=== PATIENT | male | born 1950 | race Caucasian/White ===

== ENCOUNTER 2020-03-16 07:49 | Outpatient (CLI) | payer MEDICARE, OTHER, SELFPAY ==
--- NOTE | ~2020-03-16 | NM_ITS ---
EXAMINATION: NM bone scan whole body DATE: 03/16/2020 13:52 INDICATION: Prostate cancer. TECHNIQUE: 23.6 mCi Tc-99m HDP was administered intravenously. Delayed whole-body scintigrams were o btained. COMPARISON: CT abdomen and pelvis 03/16/2020 FINDINGS: There is joint centered increased activity in the shoulders, sternoclavicular joints, knees , and feet, likely osteoarthritis. There is increased activity in lower lumbar spine correlating with degenerative disc disease by CT. IMPRESSION: 1. No evidence of metastatic disease. Reviewed, dictated and finalized at location A. ING MILL SUPERVISOR
--- NOTE | ~2020-03-16 | XR_ITS ---
XR chest 2V 03/16/2020 08:13 Indication: Prostate cancer. Hypertension. Procedure: PA and lateral views of the chest Comparison: No prior studies for comparison. Findings: Heart size normal. No focal air space disease, pulmonary edema, pleural effusion or suspect ed pneumothorax. Impression: 1: No acute cardiopulmonary disease. Reviewed, dictated and finalized at location B. COREMAKER Impression: 1: No acute cardiopulmonary disease.
--- NOTE | ~2020-03-16 | CT_ITS ---
EXAMINATION: CT abdomen pelvis w con EXAM DATE: 03/16/2020 08:24 INDICATION: Prostate cancer. TECHNIQUE: Spiral CT of the abdomen and pelvis was performed following intravenous injection of 100 m L Omnipaque 350. Axial, coronal and sagittal images were reviewed. The dose-length product (DLP) fo r this examination was 1361.33 mGy-cm. The exposure was tailored according to patient size (auto mA exposure control), and iterative reconstruction (ASIR) was used as additional dose reduction techniqu e. Comparison is made to prior examination from 05/24/2014. FINDINGS: The liver, spleen, adrenal glands and pancreas are unremarkable. Gallbladder is unremarkab le. No biliary obstruction. Portal and splenic veins are patent. Kidneys enhance symmetrically. T here is no hydronephrosis. There is a right renal peripelvic cyst measuring 4 cm. The prostate is un remarkable. The bladder is unremarkable. There is no retroperitoneal or pelvic lymphadenopathy. T here is mild scattered arteriosclerotic disease. Small umbilical fat-containing hernia. The appendix is normal. The stomach and small bowel are unremarkable. There is mild sigmoid colonic diverticulosis. There is no adjacent inflammatory change to suggest diverticulitis. There is expect ed amount of colonic stool. No free intraperitoneal gas. The heart is normal in size. There are no pericardial or pleural effusions. The lung bases are unremarkable. There are no osteoblastic or osteolytic lesions identified. IMPRESSION: 1. No evidence of metastatic disease. Reviewed, dictated and finalized at location A. D WINDER
[2020-03-16 08:19] LABS: Estimated Glomerular Filt Rate > 60
== END 2020-03-16 07:50 | disposition home or self-care (01) ==
PROVIDERS: PCP Internal Medicine; Visit Provider Urology
DX: C61 Malignant neoplasm of prostate (principal); N28.1 Cyst of kidney, acquired
CPT/HCPCS: 71046; 74177; 78306; A9561; Q9967

== ENCOUNTER 2020-04-20 09:48 | Outpatient (CLI) | payer MEDICARE, OTHER, SELFPAY ==
--- NOTE | ~2020-04-20 | XR_ITS ---
EXAMINATION: XR chest 2V DATE: 04/20/2020 10:50 INDICATION: Malignant neoplasm of prostate. TECHNIQUE: Frontal and lateral views of the chest were obtained. COMPARISON: Chest 2 views 03/16/2020, CT abdomen and pelvis 03/16/2020 FINDINGS: The chest demonstrates clear lungs without pneumonia, pleural effusion, or pneumothorax. Th e heart size is normal. IMPRESSION: 1. No acute cardiopulmonary disease. Reviewed, dictated and finalized at location A. OGY TEACHER
--- NOTE | 2020-04-20 10:30 | ECG_ITS ---
Measurements Intervals [place] Rate: 67 P: 44 AK: 179 QRS: -21 QRSD: 89 T: 12 QT: 389 QTc: 411 Interpretive Statements SINUS RHYTHM DELAYED PRECORDIAL R/S TRANSITION BORDERLINE T WAVE ABNORMALITY- INFERIOR LEADS BASELINE ARTIFACT- I, II, AVR, AVL BORDERLINE ECG Electronically Signed On 04-20-2020 10:54:15 MEDICAL REVIEW SPECIALIST by Kaleb Hagen D.O.
[2020-04-20 10:58] LABS: Basophils Absolute Auto 0.1 K/mm3 (0.0-0.1); Basophils Percent Auto 0.7 % (0.2-1.2); Eosinophils Absolute Auto 0.3 K/mm3 (0-0.3); Eosinophils Percent Auto 4.7 % (0-4.4); Hematocrit 44.2 % (42.0-52.0); Hemoglobin 14.8 g/dL (14.0-18.0); Immature Granulocyte Absolute 0.02 K/mm3 (0.00-0.031); Immature Granulocyte Percent A 0.3 % (0-0.5); Lymphocytes Absolute Auto 1.81 K/mm3 (0.9-3.2); Lymphocytes Percent Auto 25.9 % (18.3-44.2); Mean Corpuscular HGB Conc 33.5 g/dl (32-36); Mean Corpuscular Hemoglobin 30.3 pg (26-34); Mean Corpuscular Volume 90.6 fl (80-100); Mean Platelet Volume 9.9 fl (7.4-10.4); Monocytes Absolute Auto 0.8 K/mm3 (0.1-0.6); Neutrophils Absolute Auto 3.9 K/mm3 (1.3-6.7); Neutrophils Percent Auto 56.4 % (45.5-73.1); Platelet Count Result 231 k/mm3 (150-375); Red Blood Count 4.88 M/mm3 (4.6-6.20); Red Cell Distribution Width 12.4 % (11.5-14.5)
[2020-04-20 11:00] LABS: Add Urine Microscopic? NO; Appearance Urine Clear (Clear); Bilirubin Urine Negative (Negative); Blood Urine Negative (Negative); Color Urine Yellow (Yellow); Glucose Urine UA Negative (Negative); Ketones Urine Negative (Negative); Leukocyte Esterase Ur Negative LEU/UL (Negative); Nitrate Urine Negative (Negative); Protein Urine Negative (Negative); Specific Grav Ur 1.015 (1.001-1.035); Urobilinogen Urine Negative mg/dL (<2.0)
[2020-04-20 11:10] LABS: Alanine Aminotransferase 31 U/L (4-50); Alkaline Phosphatase 75 U/L (38-126); Anion Gap 6 mmol/L (8-16); Aspartate Amino Transferase 27 U/L (17-59); Bilirubin,Total 0.5 mg/dL (0.2-1.3); Blood Urea Nitrogen 14 mg/dL (9-20); Calcium 9.2 mg/dL (8.4-10.2); Carbon Dioxide 31 mmol/L (22-30); Chloride 101 mmol/L (98-107); Estimated Glomerular Filt Rate > 60; Glucose 109 mg/dL (75-110); Potassium 4.2 mmol/L (3.4-5.0); Sodium 138 mmol/L (137-145)
[2020-04-20 11:13] LABS: INR 0.9; Prothrombin Time 13.1 Seconds (11.1-14.7)
[2020-04-20 11:14] LABS: Partial Thromboplastin Time 26.5 SECONDS (22.3-36.8)
== END 2020-04-20 09:49 | disposition home or self-care (01) ==
LOC: ANHSURGERY 09:51
PROVIDERS: PCP Internal Medicine; Visit Provider Urology
DX: Z01.818 Encounter for other preprocedural examination (principal); C61 Malignant neoplasm of prostate
CPT/HCPCS: 36415; 71046; 80053; 81003; 85025; 85610; 85730; 86850; 86900; 86901; 93005

== ENCOUNTER 2020-04-25 00:26 | Outpatient (CLI) | payer MEDICARE, OTHER, SELFPAY ==
[2020-04-25 19:06] LABS: SARS-CoV-2 RNA PCR Negative
== END 2020-04-25 00:27 | disposition home or self-care (01) ==
LOC: ANHCOVIDDT 00:26
PROVIDERS: PCP Internal Medicine; Visit Provider Urology
DX: Z01.812 Encounter for preprocedural laboratory examination (principal); Z20.822 Contact with and (suspected) exposure to COVID-19
CPT/HCPCS: C9803; U0003

== ENCOUNTER 2020-04-28 00:23 | Day surgery (SDC) | payer MEDICARE, OTHER, SELFPAY ==
[2020-04-20 10:10] VITALS: BP 166/72; PULSE 76; RESP 20; TEMP 37.1; O2SAT 98; BMI 35.5
--- NOTE | 2020-04-25 07:35 | P.HP_ITS ---
H&P: HPI History of Present Illness Date/Time: 04/25/20 07:35 Chief Complaint: Prostate cancer Narrative: Taurus Pelaez is a 70 year old male recently presented with a PSA of 6.6. Prostate ultrasound and biopsy revealed 6 of 12 cores with May [address] scan the abdomen pelvis, bone scan and chest x-ray showed some metastatic disease. Prostate volume by ultrasound was 26.6 grams. After careful discussion of the therapeutic options including radical prostatectomy, pelvic radiation in its various forms, androgen deprivation and active surveillance he has elected for the former. He is aware the risk of this procedure including, but not limited to, adverse cardiopulmonary events, rectal injury, failure to control prostate, cancer urinary incontinence and erectile dysfunction. Review of Systems Cardiovascular: Cardiovascular: Denies chest pain, Denies lightheadedness, Denies palpitations and Denies dyspnea Respiratory: Respiratory: Denies dyspnea Gastrointestinal: Gastrointestinal: Denies diarrhea, Denies nausea and Denies vomiting Genitourinary: Genitourinary: Denies hematuria and Denies dysuria Endocrine: Endocrine: Denies palpitations PMFSH Family History Family History Mother Family history of congestive heart failure, Onset Age: 76 Patient's mother is Family history of malignant neoplasm Sibling Hypertension Patient's sister is in good health Father Hypertension Family history of malignant neoplasm Patient's father is Other Diabetes mellitus Social History Social History Smoking status: Former smoker Tobacco type: cigarettes Second hand tobacco smoke exposure: No Additional smoking assessment comments: STATES 1PK/DAY/30YRS QUIT 1999 Alcohol intake: current Substance use: never Substance use type: does not use Spiritual care concerns: No Meds Home Medications and Allergies Home Medications Medication Instructions Recorded Confirmed Type lisinopril 10 1 tablet PO DAILY #90 tablet 12/09/19 04/20/20 Rx mg-hydrochlorothiazide 12.5 mg tablet atorvastatin 40 mg HS 04/20/20 04/20/20 History kdoznswu-cnn-JO-lycopen-lutein 1 tablet PO DAILY 04/20/20 04/20/20 History [Centrum Silver Men] Allergies Allergy/AdvReac Type Severity Reaction Status Date / Time Bumble Bee Allergy Intermediate SWELLING Uncoded 04/20/20 10:06 Exam Const: General: no acute distress Resp: Effort & Inspection: normal respiratory effort GI: Inspection: non-distended GI Palp: No abdominal tenderness and No Guarding due to palpation present (GI) Auscultation: normal bowel sounds Assessment and Plan Assessment and plan (1) Prostate cancer: Code(s): C61 - Malignant neoplasm of prostate Status: Acute Assessment and Plan: * Clinically localized, high-risk prostate cancer * Robotic-assisted radical prostatectomy with bilateral pelvic lymphadenectomy.
[2020-04-28] VITALS (15 sets, daily range): BP systolic 119–150; BP diastolic 67–95; PULSE 85–113; RESP 14–20; TEMP 36.2–36.9; O2SAT 93–98; BMI 35.4
[2020-04-28] MEDS: LACTATED RINGERS 1,000 ML 30 ML IV CONT ×2 (06:40→10:29)
--- NOTE | 2020-04-28 07:06 | WPDANESEPPF ---
Anes - Initial Pre Proc Eval Procedure: Operation Date: 04/28/20 07:30 Proposed Procedures p Robotic Assisted Laparoscopic Prostatectomy With Pelvic Lymph Node Dissection - Juan J Hernandez MD Date/Time: 04/28/20 07:06 Surgeon: Juan J Hernandez MD Pre Op Diagnosis: prostate ca Patient Data Age: 70 Gender: M Height: 5 ft 9 in Weight: 105.2 kg Last Vital Signs Temp 36.9 C 04/28/20 06:52 Pulse 94 04/28/20 06:52 Resp 16 04/28/20 06:52 BP 136/81 04/28/20 06:52 Pulse Ox 95 04/28/20 06:52 Allergies Allergy/AdvReac Type Severity Reaction Status Date / Time Bumble Bee Allergy Intermediate SWELLING Uncoded 04/28/20 06:08 Home Medications Medication Instructions Recorded Confirmed Type lisinopril 10 1 tablet PO DAILY #90 tablet 12/09/19 04/28/20 Rx mg-hydrochlorothiazide 12.5 mg tablet atorvastatin 40 mg HS 04/20/20 04/28/20 History glnzrtyn-qdq-OC-lycopen-lutein 1 tablet PO DAILY 04/20/20 04/28/20 History [Centrum Silver Men] Patient hx anesthesia problems: none Family hx anesthesia problems: none PMFSH Past Medical History Medical History (Updated 04/28/20 @ 07:06 by Rick Romano MD) HTN (hypertension) Hyperlipidemia Family History Family History Mother Family history of congestive heart failure, Onset Age: 76 Patient's mother is Family history of malignant neoplasm Sibling Hypertension Patient's sister is in good health Father Hypertension Family history of malignant neoplasm Patient's father is Other Diabetes mellitus Social History Social History Smoking status: Former smoker Tobacco type: cigarettes Second hand tobacco smoke exposure: No Additional smoking assessment comments: STATES 1PK/DAY/30YRS QUIT 1999 Alcohol intake: current Alcohol use details: STATES MAY BE COUPLE DRINKS ONCE A YR Substance use: never Substance use type: does not use Living arrangements: with family Spiritual care concerns: No Anes - Eval Final PreProcedure Day of Procedure 04/28/20 07:06 Patient weight: obese Heart: regular rate and rhythm Lungs: clear to auscultation Airway: Mallampati scale class II Neurological: alert and oriented Last oral intake: >/= 8 hours ASA classification: III Emergent: no Anesthetic plan: proceed Anesthesia type and monitoring: general ETT and standard monitoring Informed Consent: The patient's anesthetic plan and its attendant risks and benefits were discussed with the patient/family/POA. Questions were solicited and answers provided to the satisfaction of the patient/family/POA.
--- NOTE | 2020-04-28 07:10 | WPDHPUPDATE1 ---
History and Physical Update Update Date/Time: 04/28/20 07:10 History and Physical has been reviewed, including an updated exam of the patient. There are NO changes in the patient's condition. Risks, benefits, and alternatives have been discussed and questions answered. Patient agrees to proceed with procedure.
[2020-04-28] MEDS: ceFAZolin 2 GM/D5W 50 ML 2 GM/50 ML BAG IVPB (07:23)
[2020-04-28] MEDS: fentaNYL CITRATE INJ (*CRX) 100 MCG/2 ML VIAL 25 MCG IV PUSH ×4 (10:46→11:15)
--- NOTE | 2020-04-28 10:46 | PM.PROC ---
Procedure Note - Detailed Date of procedure: 04/28/20 Pre-op diagnosis: prostate ca Post-op diagnosis: same Procedure performed: Robotic assisted laparoscopic prostatectomy with bilateral pelvic lymphadenectomy Description of procedure: The patient was brought to the operative suite, where he was prepped and draped in routine sterile fashion while in a dorsal lithotomy, deep Trendelenburg position. A supraumbilical 10 mm trocar was placed after insufflation of the abdomen with a Veress needle. Three robotic ports were then placed under direct vision. Two of these were placed in the right lower quadrant - 10 cm and 20 cm lateral to, and in line with, the umbilicus. A third robotic trocar was placed 10 cm to the left of the umbilicus, and 20 cm to the left of the umbilicus, a 12 mm standard laparoscopic trocar was placed to be used as an bilingual executive assistant port. Lastly, a 5 mm trocar was placed in the left upper quadrant midway between the umbilicus and the left robotic trocar. Attention was then turned to the prostatectomy. I opted for a posterior approach in this patient. An incision was made in the parietal peritoneum along the posterior bladder/posterior prostate about 2 cm above the reflection of the peritoneum over the anterior rectum. The seminal vesicles and vas deferens were immediately identified. Dissection is undertaken in a fashion so as to avoid electrocautery as much as possible, particularly near the tips of the seminal vesicles. Dissection was also carried out in the midline so as to avoid any encounters with the ureters. The vas deferens and the seminal vesicles were dissected in their entirety to the base of the prostate. The plane anterior to Denoviller's fascia, anterior to the rectum and posterior to the prostate was then developed. I then dropped the bladder by incising the anterior parietal peritoneum just lateral to the median umbilical ligaments bilaterally. The bladder was dropped from the anterior abdominal and pelvic wall. The endopelvic fascia was identified and incised bilaterally, allowing for dissection of the posterior-lateral aspect of the prostate. The puboprostatic ligaments were transected near their origin from the posterior pubic ramus. This posterior lateral dissection of the prostate is also undertaken in a fashion so as to avoid electrocautery as much as possible. The dorsal vein of the penis is then secured with an 0 -Vicryl ligature. Attention is then turned to the bladder neck. The anterior bladder neck is incised at the vesico-prostatic junction. The previously placed urethral catheter was drawn through the urethrotomy. A very small bladder neck was maintained throughout the remainder of this dissection. The posterior bladder neck was incised in a fashion so as to avoid any injury to the ureteral orifices. Again, the small aperture of the bladder neck was maintained. The previously dissected vas deferens and the seminal vesicles were brought through the posterior bladder neck incision. The lateral prostatic pedicles were then carefully dissected from the lateral aspect of the prostate bilaterally. The prostatic pedicles were secured with Weck clips and transected. The neurovascular bundles were carefully dissected from the posterior-lateral aspect of the prostate. The dorsal vein of the penis was incised with electrocautery. Using cold scissors, the urethra was incised. After withdrawing the previously placed urethral catheter, the posterior urethra was sharply incised, as was the rectalurethralis muscle. Attention was then turned to a bilateral pelvic lymphadenectomy. The limits of this dissection were similar bilaterally. Specifically, the limits were the bifurcation of the common iliac vein proximally, the inguinal ligament distally, the obturator nerve posteriorly and the anterior aspect to the external iliac vein laterally. This dissection was undertaken with care to avoid any injury to the obturator nerve. The p
[2020-04-28] MEDS: ONDANSETRON INJ 4 MG/2 ML VIAL IV PUSH (11:05)
--- NOTE | 2020-04-28 11:13 | SUR.PHASEI ---
1110 - dr. zarco at bedside
[2020-04-28] MEDS: LACTATED RINGERS 1,000 ML 125 ML IV CONT ×2 (12:30→21:30)
--- NOTE | 2020-04-28 14:43 | PC.NURSE ---
04/28/2020 1208 Pt brought to room, report received from PACU. Pt alert & awake, appropriate, no c/o pain. Oriented to unit, clear liquid diet ordered. Pt instructed on use of phone, call light and how to reach the nurse & tech for any needs.
[2020-04-28] MEDS: ATORVASTATIN 40 MG TABLET BY MOUTH (22:50)
[2020-04-29] VITALS: BP 132/75; PULSE 85; RESP 20; TEMP 36.8; O2SAT 96
[2020-04-29 04:00] VITALS: BP 141/70; PULSE 83; RESP 20; TEMP 37.2; O2SAT 96
[2020-04-29] MEDS: LACTATED RINGERS 1,000 ML 125 ML IV CONT (05:10)
[2020-04-29 05:46] LABS: Hematocrit 38.7 % (42.0-52.0); Hemoglobin 13.1 g/dL (14.0-18.0)
[2020-04-29 05:50] LABS: Anion Gap 5 mmol/L (8-16); Blood Urea Nitrogen 12 mg/dL (9-20); Calcium 8.4 mg/dL (8.4-10.2); Carbon Dioxide 29 mmol/L (22-30); Chloride 100 mmol/L (98-107); Estimated CRCL calculation 86 ml/min; Estimated Glomerular Filt Rate > 60; Glucose 140 mg/dL (75-110); Sodium 134 mmol/L (137-145)
--- NOTE | 2020-04-29 07:17 | WPDUROPN2 ---
Progress Note: A&P Assessment and Plan (1) Prostate cancer: Code(s): C61 - Malignant neoplasm of prostate Status: Acute Assessment and Plan: Doing well POD #1 - tolerating diet and no significant abd/pelvic pain. Ambulate/increase diet this morning. Home this afternoon if continues to do well. Subjective Subjective Date/Time Seen: 04/29/20 07:17 POD #1 RALP - comfortable, tolerating diet Review of Systems Cardiovascular: Cardiovascular: Denies chest pain, Denies lightheadedness, Denies palpitations and Denies dyspnea Respiratory: Respiratory: Denies dyspnea Gastrointestinal: Gastrointestinal: Denies diarrhea, Denies nausea and Denies vomiting Genitourinary: Genitourinary: Denies hematuria and Denies dysuria Endocrine: Endocrine: Denies palpitations Exam Const: General: no acute distress Resp: Effort & Inspection: normal respiratory effort GI: Inspection: non-distended GI Palp: No abdominal tenderness and No Guarding due to palpation present (GI) Auscultation: normal bowel sounds Objective Data Vital Signs Vital Signs: Vital Signs - 24 hr 04/28/20 10:29 04/28/20 10:45 04/28/20 11:00 Temperature 98.0 F Pulse Rate 105 H 85 92 Respiratory Rate 16 18 14 Blood Pressure 149/76 H 150/95 H 130/73 Pulse Oximetry 97 95 96 04/28/20 11:15 04/28/20 11:30 04/28/20 11:45 Temperature Pulse Rate 93 88 86 Respiratory Rate 20 16 18 Blood Pressure 126/83 138/76 126/67 Pulse Oximetry 94 94 94 04/28/20 11:55 04/28/20 11:57 04/28/20 12:12 Temperature 97.4 F L 97.3 F L Pulse Rate 95 107 H 101 H Respiratory Rate 16 19 17 Blood Pressure 119/70 147/77 H 123/69 Pulse Oximetry 94 94 93 04/28/20 12:42 04/28/20 13:42 04/28/20 17:42 Temperature 97.1 F L 97.9 F 98.2 F Pulse Rate 103 H 104 H 100 Respiratory Rate 17 17 19 Blood Pressure 131/76 146/79 H 138/72 Pulse Oximetry 96 94 98 04/28/20 20:00 04/28/20 21:00 04/29/20 00:00 Temperature 97.6 F 98.3 F Pulse Rate 113 H 85 Respiratory Rate 20 20 Blood Pressure 135/85 132/75 Pulse Oximetry 96 96 96 04/29/20 04:00 Temperature 98.9 F Pulse Rate 83 Respiratory Rate 20 Blood Pressure 141/70 H Pulse Oximetry 96 Intake/Output Intake/Output: Intake & Output 04/26/20 04/27/20 04/28/20 04/29/20 23:59 23:59 23:59 23:59 Intake Total 1650 2200 Output Total 610 3700 Balance 1040 -1500 Meds/Results Medications: Active Medications Generic Name Dose Route Start Last Admin Trade Name Freq PRN Reason Stop Dose Admin Atorvastatin Calcium 40 mg 04/28/20 21:00 04/28/20 22:50 Atorvastatin 40 Mg Tablet BY MOUTH 40 mg HS BEBO Administration Fentanyl Citrate 25 mcg 04/28/20 07:00 04/28/20 11:15 Fentanyl Citrate Inj (*Crx) 100 Mcg/2 Ml Vial IV PUSH 25 mcg Q2M PRN Administration Pain Hydrochlorothiazide 12.5 mg 04/29/20 09:00 Hydrochlorothiazide 12.5 Mg Capsule PO 05/29/20 09:01 DAILY BEBO Hyoscyamine 0.125 mg 04/28/20 11:57 Hyoscyamine Sulfate 0.125 Mg Tablet SUBLINGUAL Q4H PRN Bladder Spasm Lactated Ringer's 1,000 mls @ 30 mls/hr 04/27/20 15:40 04/28/20 10:29 Lr - Lactated Ringers Iv IV CONT Infused .Q24H BEBO Infusion Lactated Ringer's 1,000 mls @ 30 mls/hr 04/28/20 07:00 04/28/20 11:56 Lr - Lactated Ringers Iv IV CONT Infused .Q24H BEBO Infusion Lactated Ringer's 1,000 mls @ 125 mls/hr 04/28/20 11:57 04/29/20 05:10 Lr - Lactated Ringers Iv IV CONT 125 mls/hr .Q8H BEBO Administration Levofloxacin 500 mg 04/29/20 09:00 Levofloxacin Tab 500 Mg Tablet PO DAILY BEBO Lisinopril 10 mg 04/29/20 09:00 Lisinopril 10 Mg Tablet PO 05/29/20 09:01 DAILY BEBO Naloxone HCl 0.1 mg 04/28/20 11:57 Naloxone Hcl 0.4 Mg/Ml Vial IV PUSH Q2M PRN Opiate Reversal Ondansetron HCl 4 mg 04/28/20 07:00 04/28/20 11:05 Ondansetron Inj 4 Mg/2 Ml Vial IV PUSH 4 mg ONCE PRN Administration Nausea L
--- NOTE | 2020-04-29 07:45 | WPDANESPN ---
Anes - Prog Note Post-Op Date/Time: 04/29/20 07:45 Cardiovascular status: normal Respiratory status: normal Airway patency: baseline Mental status: baseline Post-Op hydration status: normal Vital Signs: Last Vital Signs Temp 37.2 C 04/29/20 04:00 Pulse 83 04/29/20 04:00 Resp 20 04/29/20 04:00 BP 141/70 H 04/29/20 04:00 Pulse Ox 96 04/29/20 04:00 Pain Score (VAS): 3 I/O: Intake & Output 04/28/20 04/28/20 04/29/20 15:59 23:59 07:59 Intake Total 300 1300 2200 Output Total 60 550 3700 Balance 240 750 -1500 Laboratory Tests 04/29/20 05:14 04/29/20 05:14 04/29/20 04/29/20 05:14 05:14 Hgb 13.1 L Hct 38.7 L Sodium 134 L Potassium 4.0 Chloride 100 Carbon Dioxide 29 Anion Gap 5 L BUN 12 Creatinine 0.80 Estim Creat Clear Calc 86 Estimated GFR > 60 Glucose 140 H Calcium 8.4 Post-procedural complaints: none Patient Feedback: Patient satisfied with anesthetic care.
[2020-04-29 08:43] VITALS: PULSE 100; RESP 18; O2SAT 92
[2020-04-29] MEDS: hydroCHLOROthiazide 12.5 MG CAPSULE PO (08:43)
[2020-04-29] MEDS: lisinopriL 10 MG TABLET PO (08:43)
[2020-04-29 10:00] VITALS: BP 129/67; PULSE 106; RESP 18; TEMP 36.6; O2SAT 92
--- NOTE | 2020-04-29 11:32 | PM.DS ---
DS: Admitting Diagnosis Admitting Diagnosis Admitting Diagnosis: Prostate cancer DS: Discharge Diagnosis Discharge Diagnosis (1) Prostate cancer: Code(s): C61 - Malignant neoplasm of prostate Status: Acute (2) Essential (primary) hypertension: Code(s): I10 - Essential (primary) hypertension Status: Acute (3) Gastro-esophageal reflux disease without esophagitis: Code(s): K21.9 - Gastro-esophageal reflux disease without esophagitis Status: Acute DS: Summary Hospital Course Hospital Course: This patient was admitted on the morning of his planned robotic prostatectomy. This procedure was uneventful, as was his postoperative course. By the evening of the procedure he was sitting at the bedside in tolerating a liquid diet. The following morning he was ambulating freely and tolerating regular food. His catheter drainage remained essentially clear throughout. His postoperative hemoglobin and serum creatinine were unremarkable. At the time of discharge he has been instructed in appropriate care for his Quinn catheter with both a leg bag and bedside bag. He will be discharged with plans to follow-up in 1 week with a cystogram. Time Spent with Patient Time attestation: Total time spent providing and/or coordinating discharge services: 15min. Condition on discharge: good This patient was admitted on the morning of his planned robotic prostatectomy. This procedure was uneventful, as was his postoperative course. By the evening of the procedure he was sitting at the bedside in tolerating a liquid diet. The following morning he was ambulating freely and tolerating regular food. His catheter drainage remained essentially clear throughout. His postoperative hemoglobin and serum creatinine were unremarkable. At the time of discharge he has been instructed in appropriate care for his Quinn catheter with both a leg bag and bedside bag. He will be discharged with plans to follow-up in 1 week with a cystogram. Exam Const: General: no acute distress Resp: Effort & Inspection: normal respiratory effort GI: Inspection: non-distended GI Palp: No abdominal tenderness and No Guarding due to palpation present (GI) Auscultation: normal bowel sounds Urinary Catheter: Urinary Catheter: patent and draining DS: Data Data Completed and Pending Pending studies at discharge: Pending at discharge 04/28/20 09:53 Surgical [PTH] Routine Surgical [PTH] Routine Labs on day of discharge: Labs from last 24 hours 04/29/20 04/29/20 05:14 05:14 Hgb 13.1 L Hct 38.7 L Sodium 134 L Potassium 4.0 Chloride 100 Carbon Dioxide 29 Anion Gap 5 L BUN 12 Creatinine 0.80 Estim Creat Clear Calc 86 Estimated GFR > 60 Glucose 140 H Calcium 8.4 Discharge Plan Discharge Patient Disposition: Home, Self-Care Discharge Instructions: 1) Quinn catheter -> leg bag / bedside bag at night. 2) No lifting/straining >15lbs. x3 weeks. 3) No driving x1-week. 4) Resume normal, pre-operative diet. 5) My office will contact regarding follow-up in 1-week with cystogram. Stand Alone Forms: General Discharge Instructions Discharge Medications: New ciprofloxacin HCl 500 mg tablet 500 mg PO Q12H Qty: 10 RF: 0 docusate sodium [Colace] 100 mg capsule 100 mg PO DAILY Qty: 30 RF: 0 hydrocodone-acetaminophen 5-325 mg tablet 1 - 2 tablet PO Q6H PRN (Reason: pain) Qty: 20 RF: 0 hyoscyamine sulfate 0.125 mg tablet 0.125 mg PO Q6H PRN (Reason: bladder spasms) Qty: 20 RF: 2 Continued atorvastatin 40 mg tablet 40 mg HS RF: 0 Centrum Silver Men 300-600-300 mcg Tablet 1 tablet PO DAILY RF: 0 lisinopril-hydrochlorothiazide 10-12.5 mg tablet 1 tablet PO DAILY Qty: 90 RF: 1
== END 2020-04-29 14:15 | disposition home or self-care (01) ==
LOC: ANHSURGERY 05:57 → ANH2MED 04-29 11:32
PROVIDERS: PCP Internal Medicine; Visit Provider Urology
PROC: 0VT04ZZ Resection of Prostate, Percutaneous Endoscopic Approach (ICD-10-PCS; CPT 55867; principal; 2020-04-28 07:30)
DX: C61 Malignant neoplasm of prostate (principal); D22.5 Melanocytic nevi of trunk; Z87.891 Personal history of nicotine dependence
CPT/HCPCS: 55866; 38571; S2900; 36415; 80048; 85014; 85018; 88305; 88307; 88309; A9270; J0690; J1100; J1170; J2405; J2704; J2710; J3010; J7030; J7120; Q9968

== ENCOUNTER 2020-05-06 10:09 | Outpatient (CLI) | payer MEDICARE, OTHER, SELFPAY ==
--- NOTE | ~2020-05-06 | XR_ITS ---
EXAMINATION: XR cystogram EXAM DATE: 05/06/2020 11:04 INDICATION: Prostate cancer . Cystectomy. TECHNIQUE: Cystogram performed through Quinn catheter in place on patient arrival. Patient tolerated approximately 150 mL of sterile water Omnipaque 350 solution. There is no prior study for compariso n. FINDINGS: The bladder has a normal appearance and contour. No ureteral reflux wasn't demonstrated. N o bladder diverticula or contrast extravasation. Some bony degenerative changes. IMPRESSION: Normal postoperative cystogram. Reviewed, dictated and finalized at location A. RTISING SALES ASSISTANT
== END 2020-05-06 10:10 | disposition home or self-care (01) ==
PROVIDERS: PCP Internal Medicine; Visit Provider Urology
DX: C61 Malignant neoplasm of prostate (principal)
CPT/HCPCS: 51600; 74430; Q9967

== ENCOUNTER 2022-04-25 14:30 | Outpatient (RCR) | payer MEDICARE, OTHER, SELFPAY ==
[2022-01-30 09:53] VITALS: BMI 40.4
[2022-01-30 10:41] VITALS: BMI 40.4
== END 2022-04-30 23:59 | disposition home or self-care (01) ==
LOC: ANHDMC 14:30
PROVIDERS: PCP Internal Medicine; Visit Provider Internal Medicine
DX: E11.9 Type 2 diabetes mellitus without complications (principal); Z71.3 Dietary counseling and surveillance; Z71.89 Other specified counseling
CPT/HCPCS: 97802; G0108; G0109

== ENCOUNTER 2022-05-09 14:30 | Outpatient (RCR) | payer MEDICARE, OTHER, SELFPAY | END 2022-07-16 08:51 | disposition home or self-care (01) | LOC: ANHDMC 14:30 | PROVIDERS: PCP Internal Medicine; Visit Provider Internal Medicine | DX: E11.9 Type 2 diabetes mellitus without complications (principal); Z71.89 Other specified counseling | CPT/HCPCS: 99199; G0109 ==

== ENCOUNTER 2022-08-30 14:58 | Outpatient (RCR) | payer MEDICARE, OTHER, SELFPAY | END 2022-09-03 11:45 | disposition home or self-care (01) | LOC: ANHDMC 14:58 | PROVIDERS: PCP Internal Medicine; Referring Provider Internal Medicine; Visit Provider Internal Medicine | DX: E11.9 Type 2 diabetes mellitus without complications (principal); Z71.89 Other specified counseling | CPT/HCPCS: G0109 ==

== ENCOUNTER 2023-04-24 00:17 | Day surgery (SDC) | payer MEDICARE, OTHER, SELFPAY ==
--- NOTE | 2023-04-22 08:45 | SUR.PREOP ---
Patient called regarding upcoming procedure. Reviewed preop instructions, appointment times, and procedure prep.
[2023-04-23 14:58] VITALS: BMI 35.3
[2023-04-24 07:57] LABS: Glucose Point of Care 111 mg/dl (65-105)
[2023-04-24 07:58] VITALS: BP 136/76; PULSE 75; RESP 18; TEMP 35.9; O2SAT 97
[2023-04-24] MEDS: LACTATED RINGERS 1,000 ML 150 ML IV CONT (08:02)
--- NOTE | 2023-04-24 08:36 | WPDANESEPPF ---
Anes - Initial Pre Proc Eval Procedure: Operation Date: 04/24/23 09:00 Proposed Procedures p Screening Colonoscopy - Efrain Rawls MD Date/Time: 04/24/23 08:36 Surgeon: Efrain Rawls MD Pre Op Diagnosis: neoplasm screening Patient Data Age: 73 Gender: M Height: 1.7 m Weight: 102.6 kg Last Vital Signs Temp 96.7 F L 04/24/23 07:58 Pulse 75 04/24/23 07:58 Resp 18 04/24/23 07:58 BP 136/76 04/24/23 07:58 Pulse Ox 97 04/24/23 07:58 O2 Del Method Room Air 04/24/23 07:58 Allergies Allergy/AdvReac Type Severity Reaction Status Date / Time bee venom protein (honey bee) Allergy Intermediate Swelling Verified 04/24/23 07:56 Home Medications Medication Instructions Recorded Confirmed Type [id number] 300 mcg-K 60 1 tablet PO DAILY 04/20/20 04/24/23 History mcg-lycop 600 mcg-lutein 300 mcg tablet (Centrum Silver Men) cetirizine 10 mg tablet (All Day 10 mg PO DAILY PRN allergies 01/03/21 04/24/23 History Allergy (cetirizine)) lancets 30 gauge (OneTouch Delica #100 ea 04/25/22 07/26/22 Rx Lancets) fluticasone propionate 50 2 spray intranasal DAILY #16 grams 04/27/22 04/24/23 Rx mcg/actuation nasal spray,suspension (Flonase Allergy Relief) blood sugar diagnostic (OneTouch #100 ea 09/24/22 Rx Verio test strips) atorvastatin 40 mg tablet 40 mg PO DAILY #90 tabs 12/12/22 04/24/23 Rx lisinopril 10 1 tablet PO DAILY #90 tabs 03/14/23 04/24/23 Rx mg-hydrochlorothiazide 12.5 mg tablet metformin 500 mg tablet 500 mg PO DAILY #90 tabs 03/21/23 04/24/23 Rx Laboratory Tests 04/24/23 07:54 POC Capillary Glucose 111 H mg/dl (65-105) Patient hx anesthesia problems: none Family hx anesthesia problems: none Results Review: All pre-operative results and documents have been reviewed as part of the pre-operative evaluation. [facility] Past Medical History Medical History Elevated PSA History of skin cancer HTN (hypertension) Hyperlipidemia Impaired fasting glucose Prostate cancer Surgical History Surgical History History of prostatectomy Family History Family History Mother Family history of congestive heart failure, Onset Age: 76 Patient's mother is Family history of malignant neoplasm Sibling Hypertension Patient's sister is in good health Father Hypertension Family history of malignant neoplasm Patient's father is Other Diabetes mellitus Social History Social History Smoking packs per day: 1 Smoking cigarettes per day: 20.0 Years smoked: 20 Smoking pack-years: 20.00 Smoking status: Former smoker Tobacco type: cigarettes Second hand tobacco smoke exposure: No Smoking end date: 01/22/97 Additional smoking assessment comments: STATES 1PK/DAY/30YRS QUIT 1999 Alcohol intake: never Substance use: never Substance use type: does not use Lack of Transportation: No Lack of Food: Never True Current Housing: I Have Housing Concerned About Future Housing: No Difficulty Paying Gas/Electric Bills: No Difficulty Paying for Meds: No Currently Unemployed: No Education: High School Diploma/GED Difficulty w/ Childcare or Family Care: No Living arrangements: with family Spiritual care concerns: No Anes - Eval Final PreProcedure Day of Procedure 04/24/23 08:36 Patient weight: obese Heart: regular rate and rhythm Lungs: clear to auscultation Airway: Mallampati scale class II Neurological: alert and oriented Last oral intake: >/= 8 hours ASA classification: III Emergent: no Anesthetic plan: proceed Anesthesia type and monitoring: general GIVS and standard monitoring Results Review: All pre-operative results
--- NOTE | 2023-04-24 09:08 | PM.HPGS ---
History of Present Illness History of Present Illness Consent: Risks, benefits, and alternatives have been discussed and questions answered. Patient agrees to proceed with procedure. Chief complaint: neoplasm screening Narrative: Taurus Pelaez is a 73 year old male with colon poly in 2018 Review of Systems Constitutional: Constitutional: Denies headache(s) and Denies weakness Eyes: Eyes: Denies blurry vision ENT: Reports Normal hearing present, Denies headache(s) and Denies neck pain Cardiovascular: Cardiovascular: Denies chest pain and Denies dyspnea Respiratory: Respiratory: Denies dyspnea Gastrointestinal: Gastrointestinal: Reports no additional gastrointestinal complaints Genitourinary: Genitourinary: Denies dysuria Musculoskeletal: Musculoskeletal: Denies neck pain Integumentary/Breasts: Skin/Breast: Denies dry skin Neurologic: Reports Normal hearing present, Denies headache(s) and Denies weakness Psychiatric: Psychiatric: Denies anxiety Endocrine: Endocrine: Denies change in body appearance Hematologic/Lymphatic: Hematologic/Lymphatic: Denies easy bleeding Allergic/Immunologic: Allergic/Immunologic: Denies urticaria [facility] Past Medical History Medical History (Updated 04/24/23 @ 09:09 by Efrain Rawls MD) Colon polyp Elevated PSA History of skin cancer HTN (hypertension) Hyperlipidemia Impaired fasting glucose Prostate cancer Surgical History Surgical History History of prostatectomy Family History Family History Mother Family history of congestive heart failure, Onset Age: 76 Patient's mother is Family history of malignant neoplasm Sibling Hypertension Patient's sister is in good health Father Hypertension Family history of malignant neoplasm Patient's father is Other Diabetes mellitus Social History Social History Smoking packs per day: 1 Smoking cigarettes per day: 20.0 Years smoked: 20 Smoking pack-years: 20.00 Smoking status: Former smoker Tobacco type: cigarettes Second hand tobacco smoke exposure: No Smoking end date: 01/22/97 Additional smoking assessment comments: STATES 1PK/DAY/30YRS QUIT 1999 Alcohol intake: never Substance use: never Substance use type: does not use Lack of Transportation: No Lack of Food: Never True Current Housing: I Have Housing Concerned About Future Housing: No Difficulty Paying Gas/Electric Bills: No Difficulty Paying for Meds: No Currently Unemployed: No Education: High School Diploma/GED Difficulty w/ Childcare or Family Care: No Living arrangements: with family Spiritual care concerns: No Meds Home Medications and Allergies Home Medications Medication Instructions Recorded Confirmed Type omaxmgzd-me-[id number] 300 mcg-K 60 1 tablet PO DAILY 04/20/20 04/24/23 History mcg-lycop 600 mcg-lutein 300 mcg tablet (Centrum Silver Men) cetirizine 10 mg tablet (All Day 10 mg PO DAILY PRN allergies 01/03/21 04/24/23 History Allergy (cetirizine)) lancets 30 gauge (One4AllTouch Delica #100 ea 04/25/22 07/26/22 Rx Lancets) fluticasone propionate 50 2 spray intranasal DAILY #16 grams 04/27/22 04/24/23 Rx mcg/actuation nasal spray,suspension (Flonase Allergy Relief) blood sugar diagnostic (OneTouch #100 ea 09/24/22 Rx Verio test strips) atorvastatin 40 mg tablet 40 mg PO DAILY #90 tabs 12/12/22 04/24/23 Rx lisinopril 10 1 tablet PO DAILY #90 tabs 03/14/23 04/24/23 Rx mg-hydrochlorothiazide 12.5 mg tablet metformin 500 mg tablet 500 mg PO DAILY #90 tabs 03/21/23 04/24/23 Rx Allergies Allergy/AdvReac Type Severity Reaction Status Date / Time bee venom protein (honey bee) Allergy Intermediate Swelling Verified 04/24/23 07:56 Vital Signs Vital Sign
[2023-04-24 09:34] VITALS: BP 115/74; PULSE 73; O2SAT 97
[2023-04-24 09:44] VITALS: BP 114/68; PULSE 70; O2SAT 96
[2023-04-24 09:54] VITALS: BP 116/77; PULSE 63; O2SAT 98
== END 2023-04-24 10:02 | disposition home or self-care (01) ==
PROVIDERS: PCP Family Medicine; Visit Provider Internal Medicine Gastroenterology
PROC: 0DJD8ZZ Inspection of Lower Intestinal Tract, Via Natural or Artificial Opening Endoscopic (ICD-10-PCS; CPT 45378; principal; 2023-04-24 09:00)
DX: Z12.11 Encounter for screening for malignant neoplasm of colon (principal); K57.30 Diverticulosis of large intestine without perforation or abscess without bleeding; K64.8 Other hemorrhoids; Z86.010 Personal history of colon polyps; I10 Essential (primary) hypertension; E78.5 Hyperlipidemia, unspecified; Z85.46 Personal history of malignant neoplasm of prostate; Z79.84 Long term (current) use of oral hypoglycemic drugs; Z87.891 Personal history of nicotine dependence; E66.9 Obesity, unspecified; Z68.35 Body mass index [BMI] 35.0-35.9, adult
CPT/HCPCS: G0105; 82948; J2704; J7120

== ENCOUNTER 2023-05-03 11:31 | Outpatient (CLI) | payer MEDICARE, OTHER, SELFPAY ==
--- NOTE | ~2023-05-03 | XR_ITS ---
EXAMINATION: XR abdomen/kub 1V INDICATION: Kidney stone TECHNIQUE: Supine views of the abdomen were obtained on 2 radiographs. COMPARISON: None FINDINGS: There are phleboliths of the left pelvis. A 2 mm calcification of the left pelvis could ref lect a phlebolith or ureterovesicular junction stone. No suspected stones project over the kidneys. T he bowel gas pattern is normal. There is moderate osteoarthritis of the hips. There is at least moder ate lumbar spondylosis. IMPRESSION: 1. 2 mm calcification of the left pelvis which could reflect phlebolith versus left ureterovesicular junction stone. Correlate for left flank pain. Reviewed, dictated and finalized at location F. [facility] [employer]
== END 2023-05-03 11:32 | disposition home or self-care (01) ==
PROVIDERS: PCP Family Medicine; Visit Provider Urology
DX: N20.0 Calculus of kidney (principal)
CPT/HCPCS: 74018

== ENCOUNTER 2023-06-24 18:54 | Emergency (ER) | payer MEDICARE, OTHER, SELFPAY ==
--- NOTE | ~2023-06-24 | CT_ITS ---
EXAMINATION: CT abd pelvis lumbar wo con DATE: 06/24/2023 21:12 INDICATION: R flank pain, rule out stone TECHNIQUE: Computed tomography (CT) of the abdomen and pelvis and lumbar spine was performed with 100 mL Omnipaque-350 intravenous contrast. Automated exposure control and iterative reconstruction techn ique were employed. The dose-length product was 1206.38 mGy-cm. COMPARISON: 03/16/2020. FINDINGS: ABDOMEN AND PELVIS: Lower thorax: Unremarkable Liver: Normal. Biliary/Gallbladder: Mildly distended gallbladder, no inflammatory changes. No bile duct dilation. Pancreas: No mass or duct dilation. Spleen: Normal. Adrenals:No mass. Kidneys: No suspicious mass, obstructing stone, or hydronephrosis. Parapelvic cysts on the left. Mode rate bilateral perinephric stranding GI tract: No small or large bowel dilation. Normal appendix. Diverticulosis without diverticulitis. Mesentery/Peritoneum: No ascites, mass, or free air. Retroperitoneum: No mass. Atherosclerotic abdominal aortic and/or arterial calcifications. Pelvis: Pelvic organs are within normal limits. Soft Tissues: Soft tissues and body wall unremarkable. Bones (excluding spine): No acute osseous finding. LUMBAR SPINE: 5 nonrib-bearing lumbar-type vertebral bodies. Pedicles intact. Normal vertebral body alignment. Vert ebral body heights preserved. Multilevel mild facet sclerosis. Multilevel moderate degenerative disc disease. 6 mm right paracentral L2-3 disc extrusion. Multilevel mild and moderate degrees of neural f oraminal narrowing and central canal narrowing. IMPRESSION: Mild gallbladder hydrops without inflammatory change catheter possibly secondary to fasting. Correlat e with right upper quadrant pain and biliary labs. No acute fracture, traumatic malalignment, severe neural foraminal narrowing, or severe central canal narrowing in the lumbar spine. Reviewed, dictated and finalized at location K. IMPRESSION: Mild gallbladder hydrops without inflammatory change catheter possibly secondar y to fasting. Correlate with right upper quadrant pain and biliary labs. No acute fracture, traumatic malalignment, severe neural foraminal narrowing, o r severe central canal narrowing in the lumbar spine.
[2023-06-24 18:58] VITALS: BP 176/80; PULSE 90; RESP 20; TEMP 36.3; O2SAT 98
--- NOTE | 2023-06-24 20:37 | ED.GENADULT ---
HPI - General Adult General Chief complaint: Abdominal Pain Stated complaint: RLQ pain Time Seen by Provider: 06/24/23 19:56 Source: patient Mode of arrival: ambulatory Limitations: no limitations History of Present Illness HPI narrative: This is a 73-year-old male who presents to the ED with chief complaint of right lower back pain for the past couple days. Reports pain in the right lower back/right flank area that radiates down into the lateral hip. Reports at times it will go down to the thigh. He reports that when he leans forward the pain is alleviated in the low back. He also knows some nausea onset today as well as some discomfort in the groin. He states that this is somewhat similar to kidney stones in the past. No known history of sciatica. Denies fevers, chills, saddle anesthesia, bowel or bladder dysfunction, numbness, weakness. Related Data Home Medications Medication Instructions Recorded Confirmed ptzrbspr-jk-[id number] 300 mcg-K 60 1 tablet PO DAILY 04/20/20 04/24/23 mcg-lycop 600 mcg-lutein 300 mcg tablet (Centrum Silver Men) cetirizine 10 mg tablet (All Day 10 mg PO DAILY PRN allergies 01/03/21 04/24/23 Allergy (cetirizine)) Allergies Allergy/AdvReac Type Severity Reaction Status Date / Time bee venom protein (honey bee) Allergy Intermediate Swelling Verified 04/24/23 07:56 Review of Systems Review of Systems: All systems as dictated in [facility] Past Medical History Medical History (Updated 06/25/23 @ 00:00 by Mani Yepez) Colon polyp Elevated PSA History of skin cancer HTN (hypertension) Hyperlipidemia Impaired fasting glucose Prostate cancer Surgical History Surgical History History of prostatectomy Family History Family History Mother Family history of congestive heart failure, Onset Age: 76 Patient's mother is Family history of malignant neoplasm Sibling Hypertension Patient's sister is in good health Father Hypertension Family history of malignant neoplasm Patient's father is Other Diabetes mellitus Social History Social History Smoking packs per day: 1 Smoking cigarettes per day: 20.0 Years smoked: 20 Smoking pack-years: 20.00 Smoking status: Former smoker Tobacco type: cigarettes Second hand tobacco smoke exposure: No Smoking end date: 01/22/97 Additional smoking assessment comments: STATES 1PK/DAY/30YRS QUIT 1999 Alcohol intake: never Substance use: never Substance use type: does not use Lack of Transportation: No Lack of Food: Never True Current Housing: I Have Housing Concerned About Future Housing: No Difficulty Paying Gas/Electric Bills: No Difficulty Paying for Meds: No Currently Unemployed: No Education: High School Diploma/GED Difficulty w/ Childcare or Family Care: No Living arrangements: with family Spiritual care concerns: No Exam Narrative: GENERAL: Well-appearing, well-nourished, and in no acute distress. HEAD: Normocephalic, atraumatic. EYES: PERRLA and EOMI. ENT: Nares clear, no rhinorrhea or epistaxis. Mucous membranes moist. Oropharynx without tonsillar hypertrophy exudate or other lesions. NECK: Supple. No adenopathy or masses. CHEST: No respiratory distress. Clear to auscultation. No wheezes rales or rhonchi HEART: Regular rate and rhythm. No murmur heard. Normal peripheral pulses. ABDOMEN: Minimal tenderness to the right flank. Negative left flank tenderness. Soft, nontender, nondistended, normal active bowel sounds. MSK: Mild tenderness to the right lower paraspinal muscles. No SI tenderness. No midline spinal tenderness. SKIN: Warm, dry, no rash. NEURO: Alert and oriented x3. No focal deficits. 5/5 strength and sensation in the upper and lower extremities PSYCH: Normal
[2023-06-24 21:07] LABS: Basophils Percent Auto 0.3 % (0.2-1.2); Eosinophils Percent Auto 0.1 % (0-4.4); Hematocrit 40.9 % (42.0-52.0); Hemoglobin 14.3 g/dL (14.0-18.0); Immature Granulocyte Absolute 0.02 K/mm3 (0.00-0.031); Immature Granulocyte Percent A 0.2 % (0-0.5); Lymphocytes Absolute Auto 0.89 K/mm3 (0.9-3.2); Mean Corpuscular Hemoglobin 30.9 pg (26-34); Mean Corpuscular Volume 88.3 fl (80-100); Mean Platelet Volume 9.6 fl (7.4-10.4); Monocytes Absolute Auto 0.9 K/mm3 (0.1-0.6); Monocytes Percent Auto 10.2 % (2.6-8.5); Neutrophils Percent Auto 79.2 % (45.5-73.1); Platelet Count Result 258 k/mm3 (150-375); Red Blood Count 4.63 M/mm3 (4.6-6.20); Red Cell Distribution Width 12.4 % (11.5-14.5); White Blood Count 8.9 K/mm3 (4.5-10.0)
[2023-06-24] MEDS: SODIUM CHLORIDE 0.9% IV 1,000 ML 999 ML IV CONT (21:20)
[2023-06-24 21:22] LABS: Lactic Acid Reflex 0.9 mmol/L (0.7-2.0)
[2023-06-24 21:23] LABS: Alanine Aminotransferase 29 U/L (6-50); Albumin Level 4.4 g/dL (3.5-5.1); Alkaline Phosphatase 58 U/L (38-126); Anion Gap 6 mmol/L (8-16); Aspartate Amino Transferase 39 U/L (17-59); Blood Urea Nitrogen 15 mg/dL (9-20); Calcium 9.3 mg/dL (8.4-10.2); Carbon Dioxide 26 mmol/L (22-30); Chloride 93 mmol/L (98-107); Estimated CRCL calculation 92 ml/min; Estimated Glomerular Filt Rate > 60; Glucose 126 mg/dL (65-110); Lipase 73 U/L (23-300); Sodium 125 mmol/L (137-145)
[2023-06-24] MEDS: ONDANSETRON INJ 4 MG/2 ML VIAL IV PUSH (21:23)
[2023-06-24] MEDS: MORPHINE SULFATE (*CRX) 4 MG/ML INJ IV PUSH (21:24)
[2023-06-24 22:05] VITALS: BP 162/86; PULSE 90; RESP 16; O2SAT 96
[2023-06-24] MEDS: ORPHENADRINE CITRATE 100 MG TABLET.ER PO (22:21)
[2023-06-24 23:16] LABS: Appearance Urine Cloudy (Clear); Bacteria Urine None Seen /hpf; Bilirubin Urine Negative (Negative); Blood Urine Negative (Negative); Calcium Oxalate Crystals Urine Present /hpf; Color Urine Dark Yellow (Yellow); Glucose Urine UA Negative (Negative); Ketones Urine 3+ mg/dL (Negative); Leukocyte Esterase Ur Negative LEU/UL (Negative); Need Manual Microscopic Reviewed; Nitrate Urine Negative (Negative); Non Pathogenic Casts 0-2; Protein Urine 1+ mg/dL (Negative); RBC Urine 0-2 /hpf (0-2); Specific Grav Ur 1.031 (1.001-1.035); Squamous Epithelial Cell Urine None seen /hpf (Few); WBC Urine 0-5 /hpf
[2023-06-24 23:17] LABS: Add Urine Microscopic? YES
== END 2023-06-24 22:26 | disposition home or self-care (01) ==
LOC: ANHED 22:10
PROVIDERS: Emergency Provider Physician Assistant; PCP Family Medicine
DX: M54.16 Radiculopathy, lumbar region (principal); I10 Essential (primary) hypertension; E78.5 Hyperlipidemia, unspecified; Z86.010 Personal history of colon polyps; Z85.46 Personal history of malignant neoplasm of prostate; Z85.828 Personal history of other malignant neoplasm of skin; Z87.891 Personal history of nicotine dependence; Z90.79 Acquired absence of other genital organ(s)
CPT/HCPCS: 36415; 72131; 74176; 80053; 81001; 83605; 83690; 85025; 96361; 96374; 96375; 99284; A9270; J2270; J2405; J7030

== ENCOUNTER 2023-09-19 06:34 | Outpatient (CLI) | payer MEDICARE, OTHER, SELFPAY ==
--- NOTE | ~2023-09-19 | CT_ITS ---
CT of the Abdomen and Pelvis: Indication: Kidney stones Technique: 2.5 mm axial scans were obtained through the abdomen and pelvis prior to and following in travenous administration of 130 cc of Omnipaque 350. Dose reduction technique was used on this scan b y utilizing automated exposure control and iterative reconstruction technique. The dose-length produc t (DLP) was 2426.36 mGy-cm. COMPARISON: 06/24/2023, 03/16/2020 Findings: Scans through the lung bases are unremarkable. The liver, spleen, pancreas, gallbladder, adrenals and left kidney are within normal limits. Stable r ight renal cyst. There are atherosclerotic calcifications of the aorta. No lymphadenopathy. There is minimal inflammatory change about is sigmoid diverticula, compatible with focal mild acute d iverticulitis. No bowel obstruction. No abscess or free air. Images through the pelvis were performed. Urinary bladder unremarkable. No pelvic mass seen. No ascit es. Impression: No kidney stones seen. No significant abnormality of the system identified. Focal minimal acute diverticulitis of the sigmoid colon. Reviewed, dictated and finalized at location . Impression: No kidney stones seen. No significant abnormality of the system identified. Focal minimal acute diverticulitis of the sigmoid colon.
== END 2023-09-19 06:35 | disposition home or self-care (01) ==
PROVIDERS: PCP Family Medicine; Visit Provider Urology
DX: K57.92 Diverticulitis of intestine, part unspecified, without perforation or abscess without bleeding (principal)
CPT/HCPCS: 74178; Q9967